=== PATIENT | male | born 1950 ===

== ENCOUNTER 2020-08-10 22:46 | Emergency (ER) | payer MEDICARE, MEDICAID ==
[~2020-08-10] VITALS: Ht 170.2 cm; Wt 75.0 kg
[2020-08-10 22:52] VITALS: BP 116/73
== END 2020-08-10 23:24 | disposition left against medical advice (07) ==
LOC: ER 22:47
DX: S42.302A Unspecified fracture of shaft of humerus, left arm, initial encounter for closed fracture (principal); Z53.21 Procedure and treatment not carried out due to patient leaving prior to being seen by health care provider; X58.XXXA Exposure to other specified factors, initial encounter; Y93.89 Activity, other specified; Y92.89 Other specified places as the place of occurrence of the external cause; Y99.8 Other external cause status